=== PATIENT | female | born 1980 | race Caucasian/White ===

== ENCOUNTER 2021-10-14 23:10 | Emergency (ER) | payer OTHER ==
[~2021-10-14] VITALS: Ht 165.1 cm; Wt 68.0 kg
[2021-10-15 00:09] VITALS: BP 104/70
--- NOTE | 2021-10-15 01:28 | NUR ---
PT TAKEN TO BED 2
[2021-10-15] MEDS ORDERED: NACL 0.9% 1,000 ML IV ONE (01:45)
[2021-10-15] MEDS ORDERED: ONDANSETRON 4 MG/2 ML VIAL IVP ONE (01:45)
--- NOTE | 2021-10-15 01:50 | NUR ---
PATIENT PRESENTS TO ED WITH ABD PAIN. PT STATES ABD PAIN STARTED YESTERDAY. PATIENT IS COMPLAINING OF NAUSEA AND STATED SHE VOMITED BEFORE COMING TO THE ED. SKIN IS PINK/WARM/DRY; AAOX4 WITH EVEN AND STEADY GAIT; LUNGS CLEAR BL; HR EVEN AND REGULAR; PT DENIES ANY FEVER, CP, SOB, OR COUGH AT THIS TIME; PATIENT STATES PAIN OF 0/10 AT THIS TIME; VSS; PATIENT POSITIONED FOR COMFORT; HOB ELEVATED; BEDRAILS UP X2; BED DOWN. ER MD MADE AWARE OF PT STATUS. PMH: CROHNS, TACHYCARDIA ALLERGIES: CHECK CHART FOR COMPLETE LIST MEDS: ATENOLOL
--- NOTE | 2021-10-15 02:15 | NUR ---
ERMD AT BEDSIDE WITH PATIENT.
[2021-10-15] MEDS ORDERED: MORPHINE SULFATE 4 MG/ML SYR IVP ONE (02:30)
--- NOTE | 2021-10-15 03:10 | NUR ---
INSERTED IV ON LAC 22G. TOLERATED WELL.
[2021-10-15] MEDS ORDERED: ONDANSETRON 4 MG/2 ML VIAL ONE (03:20)
[2021-10-15] MEDS ORDERED: diphenhydrAMINE 50 MG/ML VIAL IVP ONE (03:50)
[2021-10-15] MEDS ORDERED: ACET-8386 PO (04:31)
[2021-10-15] MEDS ORDERED: PRED20TA5 PO (04:31)
[2021-10-15 04:41] VITALS: BP 117/71
--- NOTE | 2021-10-15 04:41 | NUR ---
Patient discharged with v/s stable. Written and verbal after care instructions given and explained. Patient alert, oriented and verbalized understanding of instructions. Ambulatory with steady gait. All questions addressed prior to discharge. ID band removed. Patient advised to follow up with PMD. Rx of NORCO-5 AND PREDNISONE given. Patient REVIEWED on indication of medication including possible reaction and side effects. Opportunity to ask questions provided and answered.
--- NOTE | 2021-10-15 04:41 | NUR ---
The patient's care was reviewed and supervised by Mireya Deutsch RN.
--- NOTE | 2021-10-16 10:35 | NUR ---
LATER ENTRY-IVF END TIME
== END 2021-10-15 04:41 | disposition home or self-care (01) ==
LOC: MED 23:10
DX: R10.30 Lower abdominal pain, unspecified (principal); R11.2 Nausea with vomiting, unspecified; R19.7 Diarrhea, unspecified; K50.90 Crohn's disease, unspecified, without complications; Z90.49 Acquired absence of other specified parts of digestive tract; Z88.1 Allergy status to other antibiotic agents; Z88.8 Allergy status to other drugs, medicaments and biological substances
CPT/HCPCS: 81002; 81025; 96361; 96374; 96375; 99284; J1200; J2270; J2405; J7030

== ENCOUNTER 2021-12-21 23:16 | Emergency (ER) | payer OTHER ==
[~2021-12-21] VITALS: Ht 165.1 cm; Wt 68.0 kg
[~2021-12-21 23:16] MED LIST: ACET-8386 PO; PRED20TA5 PO
[2021-12-21 23:39] VITALS: BP 133/82
--- NOTE | 2021-12-21 23:44 | NUR ---
TO BR FOR UA THEN TO BR FOLLOWING TRIAGE
[2021-12-21] MEDS ORDERED: ONDANSETRON 4 MG/2 ML VIAL IVP ONE (23:55)
[2021-12-21] MEDS ORDERED: MORPHINE SULFATE 4 MG/ML SYR IVP ONE (23:55)
[2021-12-21] MEDS ORDERED: NACL 0.9% 1,000 ML IV ONE (23:55)
[2021-12-22 00:09] LABS: BASOPHILS % (AUTO) 0.1 % (0.0-2.0); HEMATOCRIT 28.1 % (36-48); HEMOGLOBIN 9.3 g/dL (12.0-16.0); LYMPHOCYTES # (AUTO) 1.3 K/uL (2.5-16.5); LYMPHOCYTES % (AUTO) 16.6 % (20.5-51.1); MEAN CORPUSCULAR HEMOGLOBIN 25 pg (27-31); MEAN CORPUSCULAR HGB CONC 33 g/dL (33-37); MEAN CORPUSCULAR VOLUME 76.9 fL (80-94); MONOCYTES # (AUTO) 0.8 K/uL (0.8-1.0); MONOCYTES % (AUTO) 10.2 % (1.7-9.3); NEUTROPHILS # (AUTO) 5.5 K/uL (1.8-7.7); NEUTROPHILS % (AUTO) 73.1 % (42.2-75.2); PLATELET COUNT (AUTO) 507 K/uL (140-450); RED BLOOD CELL COUNT(AUTO) 3.66 MIL/uL (4.20-5.40); WHITE BLOOD COUNT (AUTO) 7.5 K/uL (4.8-10.8)
--- NOTE | 2021-12-22 00:22 | NUR ---
PT TAKEN TO ER BED 11
[2021-12-22 00:30] LABS: ALBUMIN 3.8 g/dL (3.4-5.0); ANION GAP 10.7 (8-16); CARBON DIOXIDE 29.2 mmol/L (21-32); CREATININE 0.8 mg/dL (0.6-1.3); POTASSIUM 3.9 mmol/L (3.5-5.1); TOTAL BILIRUBIN 0.2 mg/dL (0.0-1.0)
--- NOTE | 2021-12-22 00:30 | NUR ---
41 Y/O FEMALE BIBS FROM HOME, C/O VOMITING AND DIARRHEA X4 DAYS. PT STATES SHE HAS HAD MORE DIARRHEA AND VOMITING THAN USUAL, DENIES BLOOD. PT IS ALSO LIGHTHEADED. A/OX4, VSS, UNLABORED BREATHING, SPEAKING IN FULL SENTENCES; AMBULATORY W/O ASSISTANCE. HX: CROHN'S ALLERGY TO NSAIDS, ROCEPHIN, REGLAN, COMPAZINE MED: SULFASALAZINE, BENTYL, NORCO
[2021-12-22] MEDS ORDERED: methylPREDNISolone SS 125 MG in WATER STERILE 2 ML IV ONE (01:00)
[2021-12-22] MEDS ORDERED: fentaNYL citrate 0.05 MG/ML VIAL IVP ONE (01:00)
[2021-12-22] MEDS ORDERED: methylPREDNISolone SS 125 MG/2 ML VIAL IVP SCH (01:10)
[2021-12-22 01:20] LABS: APPEARANCE,URINE SL CLOUDY (CLEAR); BILIRUBIN,URINE NEGATIVE (NEGATIVE); BLOOD, URINE NEGATIVE (NEGATIVE); COLOR,URINE YELLOW (YELLOW); LEUKOCYTE ESTERASE ,URINE NEGATIVE (NEGATIVE); NITRITE, URINE NEGATIVE (NEGATIVE); PH,URINE 6.5 (5.0-9.0); UGLUCOSE 1+ (NEGATIVE)
[2021-12-22 01:32] LABS: RBC,URINE 0-5 /HPF (0-5); URINE AMORPHOUS URATE 1+ /HPF (None Seen); WBC,URINE 0-5 /HPF (0-5)
[2021-12-22] MEDS ORDERED: NACL 0.9% 1,000 ML IV ONE (02:05)
[2021-12-22] MEDS ORDERED: MORPHINE SULFATE 4 MG/ML SYR IVP ONE (02:05)
[2021-12-22] MEDS ORDERED: ONDA-188 PO ×2 (02:18→04:38)
[2021-12-22] MEDS ORDERED: ACET-8386 PO ×2 (02:18→04:38)
[2021-12-22] MEDS ORDERED: PRED20TA5 PO ×2 (02:18→04:38)
[2021-12-22] MEDS ORDERED: ONDANSETRON 4 MG/2 ML VIAL IVP ONE (02:50)
[2021-12-22 03:20] VITALS: BP 130/78
--- NOTE | 2021-12-22 03:20 | NUR ---
Patient discharged with v/s stable. Written and verbal after care instructions given and explained. Patient alert, oriented and verbalized understanding of instructions. Ambulatory with steady gait. All questions addressed prior to discharge. ID band removed. Patient advised to follow up with PMD. Rx of NORCO, ZOFRAN, AND DELTASONE given. Patient educated on indication of medication including possible reaction and side effects. Opportunity to ask questions provided and answered. VSS, A/OX4, UNLABORED BREATHING, AMBULATORY, AND CALM DEMEANOR.
== END 2021-12-22 03:19 | disposition home or self-care (01) ==
LOC: MED 23:16
DX: K50.90 Crohn's disease, unspecified, without complications (principal); Z90.49 Acquired absence of other specified parts of digestive tract; Z98.890 Other specified postprocedural states; Z79.899 Other long term (current) drug therapy; Z88.1 Allergy status to other antibiotic agents; Z88.8 Allergy status to other drugs, medicaments and biological substances
CPT/HCPCS: 36415; 80053; 81001; 81025; 83690; 85025; 96361; 96374; 96375; 96376; 99284; J2270; J2405; J2930; J3010; J7030

== ENCOUNTER 2021-12-28 22:54 | Emergency (ER) | payer OTHER ==
[~2021-12-28] VITALS: Ht 165.1 cm; Wt 68.0 kg
[~2021-12-28 22:54] MED LIST changes: +ONDA-188 PO
[2021-12-28 23:00] VITALS: BP 150/87
--- NOTE | 2021-12-28 23:00 | NUR ---
to bed ambulatory
--- NOTE | 2021-12-29 00:04 | NUR ---
ER MD at bedside for examination
[2021-12-29] MEDS ORDERED: MORPHINE SULFATE 4 MG/ML SYR IM ONE (00:10)
[2021-12-29] MEDS ORDERED: ONDANSETRON 4 MG ODT PO ONE (00:10)
[2021-12-29] MEDS ORDERED: TRAM50TA3 PO (00:21)
[2021-12-29] MEDS ORDERED: ONDA8TAB87 PO (00:21)
[2021-12-29] MEDS ORDERED: PRED20TA5 PO (00:21)
--- NOTE | 2021-12-29 00:48 | NUR ---
Patient discharged with ER MD aware of VS. Written and verbal after care instructions given and explained about diarrhea, and crohn's disease. Patient alert, oriented and verbalized understanding of instructions. Ambulatory with steady gait. All questions addressed prior to discharge. ID band removed. Patient advised to follow up with PMD. Rx of zofran, deltasone, and tramadol hcl given. Patient educated on indication of medication including possible reaction and side effects. Opportunity to ask questions provided and answered.
== END 2021-12-29 00:48 | disposition home or self-care (01) ==
LOC: MED 22:54
DX: K50.90 Crohn's disease, unspecified, without complications (principal); Z90.49 Acquired absence of other specified parts of digestive tract; Z98.890 Other specified postprocedural states; Z79.1 Long term (current) use of non-steroidal anti-inflammatories (NSAID); Z79.84 Long term (current) use of oral hypoglycemic drugs; Z88.1 Allergy status to other antibiotic agents; Z88.8 Allergy status to other drugs, medicaments and biological substances
CPT/HCPCS: 81002; 81025; 96372; 99283; J2270; Q0162

== ENCOUNTER 2022-01-19 13:13 | Emergency (ER) | payer OTHER ==
[~2022-01-19] VITALS: Ht 165.1 cm; Wt 73.0 kg
[~2022-01-19 13:13] MED LIST changes: +ONDA8TAB87 PO; +TRAM50TA3 PO
[2022-01-19 13:34] VITALS: BP 129/75
[2022-01-19] MEDS ORDERED: ONDANSETRON 4 MG ODT PO ONE (14:10)
[2022-01-19] MEDS ORDERED: HYDROmorphone PFS 2 MG/ML SYR IM ONE (14:10)
[2022-01-19 14:25] LABS: BASOPHILS % (AUTO) 0.2 % (0.0-2.0); HEMATOCRIT 29.1 % (36-48); HEMOGLOBIN 9.5 g/dL (12.0-16.0); LYMPHOCYTES # (AUTO) 1.3 K/uL (2.5-16.5); LYMPHOCYTES % (AUTO) 12.1 % (20.5-51.1); MEAN CORPUSCULAR HEMOGLOBIN 25 pg (27-31); MEAN CORPUSCULAR HGB CONC 33 g/dL (33-37); MEAN CORPUSCULAR VOLUME 76.4 fL (80-94); MONOCYTES # (AUTO) 0.8 K/uL (0.8-1.0); MONOCYTES % (AUTO) 7.8 % (1.7-9.3); NEUTROPHILS # (AUTO) 8.2 K/uL (1.8-7.7); NEUTROPHILS % (AUTO) 79.9 % (42.2-75.2); PLATELET COUNT (AUTO) 417 K/uL (140-450); RED BLOOD CELL COUNT(AUTO) 3.81 MIL/uL (4.20-5.40); RED CELL DISTRIBUTION WIDTH 18.1 % (11.6-13.7); WHITE BLOOD COUNT (AUTO) 10.3 K/uL (4.8-10.8)
[2022-01-19 14:44] LABS: ALBUMIN 3.9 g/dL (3.4-5.0); ANION GAP 18.9 (8-16); CARBON DIOXIDE 23.1 mmol/L (21-32); CREATININE 0.9 mg/dL (0.6-1.3); TOTAL BILIRUBIN 0.4 mg/dL (0.0-1.0)
[2022-01-19] MEDS ORDERED: LACTATED RINGERS 1,000 ML IV ONE (14:50)
[2022-01-19 15:52] LABS: APPEARANCE,URINE CLEAR (CLEAR); BILIRUBIN,URINE NEGATIVE (NEGATIVE); BLOOD, URINE NEGATIVE (NEGATIVE); COLOR,URINE YELLOW (YELLOW); LEUKOCYTE ESTERASE ,URINE NEGATIVE (NEGATIVE); NITRITE, URINE NEGATIVE (NEGATIVE); UGLUCOSE NEGATIVE (NEGATIVE)
[2022-01-19] MEDS ORDERED: ONDANSETRON 4 MG ODT ONE (16:25)
[2022-01-19] MEDS ORDERED: HYDROmorphone PFS 2 MG/ML SYR ONE (16:26)
--- NOTE | 2022-01-19 17:44 | NUR ---
PT IN ROOM 3. PT IS IN A GOWN. ON FRAUD EXAMINER. GAIT STEADY UP TO BATHROOM
--- NOTE | 2022-01-19 18:03 | NUR ---
41YR OLD FEMALE BIB SELF C/O ABD PAIN X4DAYS. PT HAS HX OF CHRONES DISEASE. 12/23. PT IS STATES N/V . PT IS A&OX4. GAIT STEADY. PT IS ON SEATING CAPTAIN. HOB ELEVATED. SIDE RAILS UP X2. BED POSITION. REGALAN LORIE TAPIA COMPAZINE
[2022-01-19 18:22] VITALS: BP 126/78
[2022-01-19] MEDS ORDERED: ONDA-188 SL (18:59)
[2022-01-19] MEDS ORDERED: ONDANSETRON 4 MG/2 ML VIAL IVP ONE (19:00)
[2022-01-19] MEDS ORDERED: HYDROmorphone PFS 2 MG/ML SYR IVP ONE ×2 (19:00→19:05)
--- NOTE | 2022-01-19 19:41 | NUR ---
Patient discharged with v/s stable. Written and verbal after care instructions given and explained. Patient verbalized understanding. Ambulatory with steady gait. All questions addressed prior to discharge. Advised to follow up with PMD.
--- NOTE | 2022-01-19 19:41 | NUR ---
Chart checked and completed.
== END 2022-01-19 19:41 | disposition home or self-care (01) ==
LOC: MED 13:13
DX: K52.9 Noninfective gastroenteritis and colitis, unspecified (principal); R73.9 Hyperglycemia, unspecified; K50.90 Crohn's disease, unspecified, without complications; Z79.1 Long term (current) use of non-steroidal anti-inflammatories (NSAID); Z88.1 Allergy status to other antibiotic agents; Z88.8 Allergy status to other drugs, medicaments and biological substances; Z79.84 Long term (current) use of oral hypoglycemic drugs; Z90.49 Acquired absence of other specified parts of digestive tract
CPT/HCPCS: 36415; 80053; 81003; 81025; 83690; 85025; 96361; 96372; 96374; 96375; 99284; J1170; J2405; Q0162; J7120

== ENCOUNTER 2022-05-01 12:10 | Emergency (ER) | payer OTHER ==
[~2022-05-01] VITALS: Ht 165.1 cm; Wt 68.0 kg
[~2022-05-01 12:10] MED LIST changes: +ONDA-188 SL
[2022-05-01 12:24] VITALS: BP 128/78
[2022-05-01 13:28] LABS: APPEARANCE,URINE CLEAR (CLEAR); BILIRUBIN,URINE NEGATIVE (NEGATIVE); BLOOD, URINE NEGATIVE (NEGATIVE); COLOR,URINE YELLOW (YELLOW); LEUKOCYTE ESTERASE ,URINE NEGATIVE (NEGATIVE); NITRITE, URINE NEGATIVE (NEGATIVE); UGLUCOSE NEGATIVE (NEGATIVE)
[2022-05-01 13:29] LABS: BASOPHILS % (AUTO) 0.6 % (0.0-2.0); EOSINOPHILS # (AUTO) 0.1 K/uL (0-0.4); HEMATOCRIT 34.2 % (36-48); HEMOGLOBIN 11.9 g/dL (12.0-16.0); LYMPHOCYTES # (AUTO) 1.7 K/uL (2.5-16.5); MEAN CORPUSCULAR HEMOGLOBIN 32 pg (27-31); MEAN CORPUSCULAR HGB CONC 35 g/dL (33-37); MEAN CORPUSCULAR VOLUME 90.8 fL (80-94); MONOCYTES # (AUTO) 0.4 K/uL (0.8-1.0); MONOCYTES % (AUTO) 8.2 % (1.7-9.3); NEUTROPHILS # (AUTO) 2.4 K/uL (1.8-7.7); NEUTROPHILS % (AUTO) 52.2 % (42.2-75.2); PLATELET COUNT (AUTO) 313 K/uL (140-450); RED BLOOD CELL COUNT(AUTO) 3.77 MIL/uL (4.20-5.40); RED CELL DISTRIBUTION WIDTH 18.2 % (11.6-13.7); WHITE BLOOD COUNT (AUTO) 4.5 K/uL (4.8-10.8)
[2022-05-01 13:57] LABS: ALBUMIN 3.5 g/dL (3.4-5.0); ANION GAP 10.8 (8-16); CARBON DIOXIDE 32.3 mmol/L (21-32); CREATININE 0.7 mg/dL (0.6-1.3); POTASSIUM 4.1 mmol/L (3.5-5.1); TOTAL BILIRUBIN 0.2 mg/dL (0.0-1.0)
[2022-05-01] MEDS ORDERED: MORPHINE SULFATE 4 MG/ML SYR IVP ONE (14:10)
[2022-05-01] MEDS ORDERED: ONDANSETRON 4 MG/2 ML VIAL IVP ONE (14:10)
[2022-05-01] MEDS ORDERED: NACL 0.9% 1,000 ML IV ONE (14:10)
--- NOTE | 2022-05-01 14:10 | NUR ---
41YO FEMALE PT C/O SHARP LOWER ABDOMINAL PAIN X3DAYS. REPORTS SUDDEN ONSET ALONG W/ N/V/D -BLOOD. DENIES RELIEF AFTER TAKING NORCO. ABDOMEN TENDER AND NON DISTENDED. MOIST NON PRODUCTIVE COUGH PRESENT. CLEAR JESSIKA LUNG SOUNDS. DENIES CHEST PAIN, SOB, FEVER OR CHILLS. +FAMILY AT HOME . PT AAOX4, HOB POSITIONED PER COMFORT. HX:CHROHNS DISEASE, TACHYCARDIA ALLERGIES: NSAIDS, MACROBID, ROCEPHIN, REGLAN , COMPAZINE, HALOPERIDOL
--- NOTE | 2022-05-01 14:10 | NUR ---
Note undone in EDM - 05/01/22 at 1607 by PHSEP 41YO FEMALE PT C/O SHARP LOWER ABDOMINAL PAIN X3DAYS. REPORTS SUDDEN ONSET ALONG W/ N/V/D -BLOOD. DENIES RELIEF AFTER TAKING NORCO. ABDOMEN TENDER AND NON DISTENDED. DENIES CHEST PAIN, SOB, FEVER OR CHILLS. PT AAOX4, HOB POSITIONED PER COMFORT. HX:CHROHNS DISEASE ALLERGIES: NSAIDS, MACROBID, ROCEPHIN, REGLAN , COMPAZINE, HALOPERIDOL
--- NOTE | 2022-05-01 14:25 | NUR ---
US AT BEDSIDE
[2022-05-01] MEDS ORDERED: diphenhydrAMINE 50 MG/ML VIAL IVP ONE (14:30)
[2022-05-01] MEDS ORDERED: methylPREDNISolone SS 125 MG/2 ML VIAL IVP ONE (15:35)
[2022-05-01] MEDS ORDERED: HYDROmorphone PFS 2 MG/ML SYR IVP ONE (15:35)
[2022-05-01] MEDS ORDERED: ALBUTEROL 0.083% 2.5 MG/3 ML NEBU INH ONE (15:35)
--- NOTE | 2022-05-01 15:50 | NUR ---
RT AT BEDSIDE FOR BREATHING TX
[2022-05-01 16:13] VITALS: BP 134/82
[2022-05-01] MEDS ORDERED: BUDE9TAB PO (16:22)
[2022-05-01] MEDS ORDERED: METR-435 PO (16:22)
[2022-05-01] MEDS ORDERED: CIPR500T4 PO (16:22)
[2022-05-01] MEDS ORDERED: ONDA-188 PO (16:22)
[2022-05-01] MEDS ORDERED: ACET-9527 PO (16:22)
[2022-05-01] MEDS ORDERED: NORT10CA17 PO (16:34)
--- NOTE | 2022-05-01 16:34 | NUR ---
IV removed, catheter intact and site benign. Applied folded 4x4 gauze and tape to stop bleeding.
--- NOTE | 2022-05-01 16:36 | NUR ---
Patient discharged with v/s stable. Written and verbal after care instructions FOR COLITIS given and explained. Patient alert, oriented and verbalized understanding of instructions. Ambulatory with steady gait. All questions addressed prior to discharge. ID band removed. Patient advised to follow up with PMD. Rx of HYDROCODONE, BUDESONIDE, CIPRO, METRONIDAZOLE AND ZOFRAN given. Opportunity to ask questions provided and answered.
--- NOTE | 2022-05-01 16:45 | NUR ---
The patient's care was reviewed and supervised by ED Agency Nurse 8, RN, RN.
== END 2022-05-01 16:36 | disposition home or self-care (01) ==
LOC: MED 12:10
DX: K52.9 Noninfective gastroenteritis and colitis, unspecified (principal); K50.90 Crohn's disease, unspecified, without complications; N83.202 Unspecified ovarian cyst, left side; Z88.1 Allergy status to other antibiotic agents; Z88.5 Allergy status to narcotic agent; Z88.8 Allergy status to other drugs, medicaments and biological substances; Z79.899 Other long term (current) drug therapy
CPT/HCPCS: 36415; 76830; 80053; 81003; 81025; 84703; 85025; 94640; 94760; 96361; 96374; 96375; 99284; J1170; J1200; J2270; J2405; J2930; J7613; Q0092

== ENCOUNTER 2022-05-13 09:12 | Emergency (ER) | payer OTHER ==
[~2022-05-13] VITALS: Ht 165.1 cm; Wt 70.8 kg
[~2022-05-13 09:12] MED LIST changes: +ACET-9527 PO; +BUDE9TAB PO; +CIPR500T4 PO; +METR-435 PO; +NORT10CA17 PO
[2022-05-13 09:49] VITALS: BP 115/77
--- NOTE | 2022-05-13 10:13 | NUR ---
PT AMB TO BED 12
[2022-05-13] MEDS ORDERED: HYDROmorphone 1 MG/ML AMP IVP ONE (11:35)
[2022-05-13] MEDS ORDERED: ONDANSETRON 4 MG/2 ML VIAL IVP ONE (11:35)
--- NOTE | 2022-05-13 11:55 | NUR ---
41F presents to ED with c/o Pelvic pain x3days. Pt reports a constant, cramping like, 8/10 pelvic pain, and N/V/D. Pt reports last vomiting episode was last night, denies any episodes today, nausea is still present. Pt states taking [place] and Zofran at home with no relief. Pt denies fevers and chills. Pt changed into gown and placed on bedside monitor.
[2022-05-13 12:07] LABS: BASOPHILS % (AUTO) 0.5 % (0.0-2.0); EOSINOPHILS % (AUTO) 0.8 % (0.0-4.0); HEMATOCRIT 38.7 % (36-48); HEMOGLOBIN 13.6 g/dL (12.0-16.0); LYMPHOCYTES # (AUTO) 1.5 K/uL (2.5-16.5); LYMPHOCYTES % (AUTO) 35.4 % (20.5-51.1); MEAN CORPUSCULAR HEMOGLOBIN 32 pg (27-31); MEAN CORPUSCULAR HGB CONC 35 g/dL (33-37); MONOCYTES # (AUTO) 0.3 K/uL (0.8-1.0); MONOCYTES % (AUTO) 6.4 % (1.7-9.3); NEUTROPHILS # (AUTO) 2.4 K/uL (1.8-7.7); NEUTROPHILS % (AUTO) 56.9 % (42.2-75.2); PLATELET COUNT (AUTO) 350 K/uL (140-450); RED CELL DISTRIBUTION WIDTH 16.4 % (11.6-13.7); WHITE BLOOD COUNT (AUTO) 4.2 K/uL (4.8-10.8)
[2022-05-13 12:21] LABS: ALBUMIN 4.2 g/dL (3.4-5.0); ANION GAP 16.2 (8-16); CARBON DIOXIDE 27.5 mmol/L (21-32); CREATININE 0.7 mg/dL (0.6-1.3); POTASSIUM 3.7 mmol/L (3.5-5.1); TOTAL BILIRUBIN 0.4 mg/dL (0.0-1.0)
[2022-05-13 13:52] VITALS: BP 135/83
[2022-05-13] MEDS ORDERED: methylPREDNISolone SS 125 MG in WATER STERILE 2 ML IV ONE (14:25)
[2022-05-13] MEDS ORDERED: MORPHINE SULFATE 4 MG/ML SYR IVP ONE (14:25)
[2022-05-13] MEDS ORDERED: diphenhydrAMINE 50 MG/ML VIAL IVP ONE (14:25)
--- NOTE | 2022-05-13 14:56 | NUR ---
Alta zacarias in [facility] - 05/13/22 at [address] BALTAZAR AT BEDSIDE
[2022-05-13] MEDS ORDERED: methylPREDNISolone SS 125 MG/2 ML VIAL IVP SCH (15:40)
[2022-05-13] MEDS ORDERED: ONDANSETRON 4 MG/2 ML VIAL IVP PRN (16:10)
[2022-05-13] MEDS ORDERED: MORPHINE SULFATE 2 MG/ML SYR IVP PRN (16:10)
[2022-05-13] MEDS ORDERED: MAG SULF 2000 MG/WATER PREMIX 50 ML IV PRN (16:10)
[2022-05-13] MEDS ORDERED: LORazepam 2 MG/ML VIAL IVP PRN (16:10)
[2022-05-13] MEDS ORDERED: DOCUSATE SODIUM 100 MG GELCAP PO PRN (16:10)
[2022-05-13] MEDS ORDERED: NACL 0.9% 1,000 ML IV SCH (16:10)
[2022-05-13] MEDS ORDERED: ZOLPIDEM 10 MG TAB PO PRN (16:10)
[2022-05-13] MEDS ORDERED: POTASSIUM CHLORIDE 10 MEQ TABER PO PRN (16:10)
[2022-05-13] MEDS ORDERED: ACETAMINOPHEN 325 MG TAB PO PRN (16:10)
--- NOTE | 2022-05-13 18:38 | NUR ---
Patient does not wish to proceed with medical care recommended by GIOVANNY. Patient given information related to possible complications, up to and including , which could occur as a result of leaving hospital at this time. Patient verbalizes understanding of risks involved leaving against medical advice. Patient has signed AMA form.
--- NOTE | 2022-05-13 18:44 | NUR ---
CALL DR BALTAZAR NOTIFIED OF PT AMA
[2022-05-13] MEDS ORDERED: methylPREDNISolone SS 40 MG/ML VIAL IVP SCH (21:00)
[2022-05-13] MEDS ORDERED: methylPREDNISolone SS 40 MG in WATER STERILE 1 ML IV SCH (21:00)
[2022-05-13] MEDS ORDERED: NORTRIPTYLINE 10 MG CAP PO SCH (21:00)
== END 2022-05-13 16:05 | disposition admitted as inpatient to this hospital (09) ==
LOC: MED 09:12 → UNDOADMIN 16:05 → MMU 16:05 → UNDODISIN 18:38 → MMU 18:44
DX: K50.90 Crohn's disease, unspecified, without complications (principal); Z20.822 Contact with and (suspected) exposure to COVID-19; Z79.1 Long term (current) use of non-steroidal anti-inflammatories (NSAID); Z88.8 Allergy status to other drugs, medicaments and biological substances; Z90.49 Acquired absence of other specified parts of digestive tract; Z98.890 Other specified postprocedural states
CPT/HCPCS: 36415; 74176; 80053; 81002; 81025; 83690; 85025; 87426; 96361; 96374; 96375; 99284; J1170; J1200; J2270; J2405; J2930; J7030

== ENCOUNTER 2022-07-12 11:39 | Emergency (ER) | payer OTHER ==
[~2022-07-12] VITALS: Ht 162.6 cm; Wt 74.8 kg
[~2022-07-12 11:39] MED LIST changes: -ACET-8386 PO; +ACET-8905 PO
[2022-07-12 11:56] VITALS: BP 131/74
--- NOTE | 2022-07-12 12:25 | NUR ---
PT IS LYING ON BED WITH CO ABDOMINAL PAIN X 3 DAYS. HX OF CROHNE'S DISEASE. PT COME AND GOES SEVERAL TIME TO ER FOR SAME REASON. NO ACUTE DISTRESS. A/OXNeeta, BO FOR TO SEE.
[2022-07-12] MEDS ORDERED: MORPHINE SULFATE 2 MG/ML SYR IVP STA ×2 (15:03→16:39)
[2022-07-12] MEDS ORDERED: NACL 0.9% 1,000 ML IV ONE (15:05)
[2022-07-12] MEDS ORDERED: diphenhydrAMINE 50 MG/ML VIAL IVP ONE (15:05)
[2022-07-12] MEDS ORDERED: ONDANSETRON 4 MG/2 ML VIAL IVP ONE ×2 (15:05→16:40)
--- NOTE | 2022-07-12 15:06 | NUR ---
MD BEDSIDE TO ASSESSE PT
[2022-07-12 15:25] LABS: BASOPHILS % (AUTO) 0.3 % (0.0-2.0); EOSINOPHILS # (AUTO) 0.1 K/uL (0-0.4); EOSINOPHILS % (AUTO) 2.1 % (0.0-4.0); HEMATOCRIT 37.5 % (36-48); HEMOGLOBIN 13.2 g/dL (12.0-16.0); LYMPHOCYTES # (AUTO) 2.3 K/uL (2.5-16.5); LYMPHOCYTES % (AUTO) 45.2 % (20.5-51.1); MEAN CORPUSCULAR HEMOGLOBIN 32 pg (27-31); MEAN CORPUSCULAR HGB CONC 35 g/dL (33-37); MEAN CORPUSCULAR VOLUME 92.2 fL (80-94); MONOCYTES # (AUTO) 0.3 K/uL (0.8-1.0); NEUTROPHILS # (AUTO) 2.5 K/uL (1.8-7.7); NEUTROPHILS % (AUTO) 47.4 % (42.2-75.2); PLATELET COUNT (AUTO) 300 K/uL (140-450); RED BLOOD CELL COUNT(AUTO) 4.07 MIL/uL (4.20-5.40); RED CELL DISTRIBUTION WIDTH 14.1 % (11.6-13.7); WHITE BLOOD COUNT (AUTO) 5.2 K/uL (4.8-10.8)
--- NOTE | 2022-07-12 15:29 | NUR ---
SL ESTABLISHED ON LW. 20G. LAB DRAWN BY THE WAY. NS 0.9% BOLUS STARTED. MORPHINE WITH ZOFRAN GIVEN FOR ABD PAIN WITH N/VD.
[2022-07-12 15:30] LABS: APPEARANCE,URINE CLEAR (CLEAR); BILIRUBIN,URINE NEGATIVE (NEGATIVE); BLOOD, URINE NEGATIVE (NEGATIVE); COLOR,URINE YELLOW (YELLOW); LEUKOCYTE ESTERASE ,URINE NEGATIVE (NEGATIVE); NITRITE, URINE NEGATIVE (NEGATIVE); UGLUCOSE NEGATIVE (NEGATIVE)
[2022-07-12 15:47] LABS: ALBUMIN 4.4 g/dL (3.4-5.0); ANION GAP 10.7 (8-16); CREATININE 0.6 mg/dL (0.6-1.3); POTASSIUM 3.7 mmol/L (3.5-5.1); TOTAL BILIRUBIN 0.4 mg/dL (0.0-1.0)
--- NOTE | 2022-07-12 16:45 | NUR ---
PER LIGHTER, FERNANDO 20G STARTED @[facility].
[2022-07-12] MEDS ORDERED: ACET-8905 PO (18:42)
[2022-07-12] MEDS ORDERED: ONDA-188 PO (18:42)
--- NOTE | 2022-07-12 18:55 | NUR ---
PT WAS DONE THE CT. DR. ASENCIO REVIEWED RESULT AND DECIDED TO D/C PT HOME. Patient discharged with v/s stable. Written and verbal after care instructions given and explained. Patient alert, oriented and verbalized understanding of instructions. Ambulatory with steady gait. All questions addressed prior to discharge. ID band removed. Patient advised to follow up with PMD. Rx of HYDROCODONE AND ZOFRAN given. Patient educated on indication of medication including possible reaction and side effects. Opportunity to ask questions provided and answered.
[2022-07-12 18:57] VITALS: BP 125/75
== END 2022-07-12 18:57 | disposition home or self-care (01) ==
LOC: MED 11:39
DX: K50.90 Crohn's disease, unspecified, without complications (principal); R10.30 Lower abdominal pain, unspecified; Z88.5 Allergy status to narcotic agent; Z79.1 Long term (current) use of non-steroidal anti-inflammatories (NSAID); Z88.8 Allergy status to other drugs, medicaments and biological substances; Z90.49 Acquired absence of other specified parts of digestive tract
CPT/HCPCS: 36415; 74177; 80053; 81003; 81025; 84703; 85025; 85651; 96361; 96374; 96375; 96376; 99285; J1200; J2270; J2405; Q9967; J7030

== ENCOUNTER 2023-01-22 16:13 | Emergency (ER) | payer OTHER ==
[~2023-01-22] VITALS: Ht 165.1 cm; Wt 70.9 kg
[2023-01-22 16:42] VITALS: BP 118/76; PULSE 95; RESP 20; TEMP 97; O2SAT 96
[2023-01-22] MEDS ORDERED: NACL 0.9% 1,000 ML IV SCH (22:40)
[2023-01-22] MEDS ORDERED: ONDANSETRON 4 MG/2 ML VIAL IVP ONE (22:40)
[2023-01-22] MEDS ORDERED: MORPHINE SULFATE 4 MG/ML SYR IVP ONE (22:40)
[2023-01-22 22:41] VITALS: O2SAT 96
[2023-01-22 22:56] LABS: HEMATOCRIT 39.6 % (36-48); HEMOGLOBIN 13.9 g/dL (12.0-16.0); LYMPHOCYTES # (AUTO) 0.9 K/uL (2.5-16.5); LYMPHOCYTES % (AUTO) 14.5 % (20.5-51.1); MEAN CORPUSCULAR HEMOGLOBIN 32 pg (27-31); MEAN CORPUSCULAR HGB CONC 35 g/dL (33-37); MONOCYTES % (AUTO) 0.8 % (1.7-9.3); NEUTROPHILS # (AUTO) 5.1 K/uL (1.8-7.7); NEUTROPHILS % (AUTO) 84.7 % (42.2-75.2); PLATELET COUNT (AUTO) 330 K/uL (140-450); RED CELL DISTRIBUTION WIDTH 13.8 % (11.6-13.7)
[2023-01-22 23:00] LABS: APPEARANCE,URINE SL CLOUDY (CLEAR); BILIRUBIN,URINE NEGATIVE (NEGATIVE); BLOOD, URINE NEGATIVE (NEGATIVE); COLOR,URINE YELLOW (YELLOW); LEUKOCYTE ESTERASE ,URINE TRACE (NEGATIVE); NITRITE, URINE NEGATIVE (NEGATIVE); PROTEIN,URINE NEGATIVE (NEGATIVE); UGLUCOSE NEGATIVE (NEGATIVE); UROBILINOGEN,URINE 0.2 EU/dL (0.2 - 1)
[2023-01-22 23:06] LABS: BACTERIA,URINE FEW /HPF (None Seen); MUCUS,URINE 2+ /LPF (None Seen); RBC,URINE 0-5 /HPF (0-5); SQUAMOUS EPITHELIAL CELL,UR 20-50 /LPF (0-3 (FEW)); TRICHOMONAS,URINE None Seen /HPF (None Seen); WBC,URINE 0-5 /HPF (0-5); YEAST,URINE None Seen /HPF (None Seen)
[2023-01-22 23:11] LABS: ALBUMIN 4.1 g/dL (3.4-5.0); ANION GAP 16.4 (8-16); CALCIUM 9.6 mg/dL (8.5-10.1); CARBON DIOXIDE 26.9 mmol/L (21-32); CREATININE 0.9 mg/dL (0.6-1.3); POTASSIUM 4.3 mmol/L (3.5-5.1); TOTAL BILIRUBIN 0.4 mg/dL (0.0-1.0); TOTAL PROTEIN, SERUM 8.2 g/dL (6.4-8.2)
[2023-01-23] MEDS ORDERED: ONDANSETRON 4 MG/2 ML VIAL IVP ONE (00:10)
[2023-01-23] MEDS ORDERED: MORPHINE SULFATE 4 MG/ML SYR IVP ONE (00:10)
== END 2023-01-23 01:43 | disposition left against medical advice (07) ==
LOC: MED 16:13
DX: R10.30 Lower abdominal pain, unspecified (principal); R11.2 Nausea with vomiting, unspecified; R19.7 Diarrhea, unspecified; Z90.49 Acquired absence of other specified parts of digestive tract; Z88.8 Allergy status to other drugs, medicaments and biological substances; Z88.1 Allergy status to other antibiotic agents; Z88.5 Allergy status to narcotic agent; Z79.899 Other long term (current) drug therapy
CPT/HCPCS: 36415; 74177; 80053; 81001; 81025; 83690; 85025; 96361; 96374; 96375; 96376; 99285; J2270; J2405; J7030; Q9967

== ENCOUNTER 2023-06-26 12:14 | Emergency (ER) | payer OTHER ==
[~2023-06-26] VITALS: Ht 165.1 cm; Wt 68.0 kg
[2023-06-26 12:55] VITALS: BP 116/70; PULSE 129; RESP 18; TEMP 98; O2SAT 95
[2023-06-26] MEDS ORDERED: NACL 0.9% 1,000 ML IV ONE (13:15)
[2023-06-26] MEDS ORDERED: MORPHINE SULFATE 4 MG/ML SYR IVP ONE (13:30)
[2023-06-26] MEDS ORDERED: ONDANSETRON 4 MG/2 ML VIAL IVP ONE (14:05)
[2023-06-26] MEDS ORDERED: PROM25TA27 PO (14:09)
[2023-06-26] MEDS ORDERED: ACET-8905 PO (14:09)
[2023-06-26] MEDS ORDERED: PRED20TA5 PO (14:09)
[2023-06-26] MEDS ORDERED: MORPHINE SULFATE 4 MG/ML SYR ONE (14:32)
[2023-06-26 15:41] VITALS: BP 121/69; PULSE 89; RESP 18; TEMP 98; O2SAT 96
== END 2023-06-26 15:41 | disposition home or self-care (01) ==
LOC: MED 12:14
DX: K50.90 Crohn's disease, unspecified, without complications (principal); R11.2 Nausea with vomiting, unspecified; Z90.49 Acquired absence of other specified parts of digestive tract; Z79.899 Other long term (current) drug therapy; Z79.2 Long term (current) use of antibiotics; Z88.8 Allergy status to other drugs, medicaments and biological substances; Z88.6 Allergy status to analgesic agent; Z88.1 Allergy status to other antibiotic agents
CPT/HCPCS: 81002; 81025; 96361; 96374; 96375; 99284; J2270; J2405; J7030

== ENCOUNTER 2023-09-13 05:15 | Emergency (ER) | payer OTHER ==
[~2023-09-13] VITALS: Ht 165.1 cm; Wt 68.0 kg
[~2023-09-13 05:15] MED LIST changes: +PROM25TA27 PO
[2023-09-13 05:34] VITALS: BP 123/83; PULSE 108; RESP 21; TEMP 98.2; O2SAT 95
[2023-09-13 06:29] LABS: APPEARANCE,URINE CLEAR (CLEAR); BILIRUBIN,URINE NEGATIVE (NEGATIVE); BLOOD, URINE NEGATIVE (NEGATIVE); COLOR,URINE YELLOW (YELLOW); LEUKOCYTE ESTERASE ,URINE NEGATIVE (NEGATIVE); NITRITE, URINE NEGATIVE (NEGATIVE); PROTEIN,URINE NEGATIVE (NEGATIVE); UGLUCOSE TRACE (NEGATIVE); UROBILINOGEN,URINE 0.2 EU/dL (0.2 - 1)
[2023-09-13 06:35] VITALS: BP 123/83; PULSE 108; RESP 21; TEMP 98.2; O2SAT 95
== END 2023-09-13 06:35 | disposition home or self-care (01) ==
LOC: MED 05:15
DX: G89.29 Other chronic pain (principal); R10.9 Unspecified abdominal pain; F11.90 Opioid use, unspecified, uncomplicated; R11.2 Nausea with vomiting, unspecified; E78.00 Pure hypercholesterolemia, unspecified; Z79.899 Other long term (current) drug therapy; Z88.8 Allergy status to other drugs, medicaments and biological substances; Z88.6 Allergy status to analgesic agent; Z88.1 Allergy status to other antibiotic agents
CPT/HCPCS: 81003; 81025; 99283